=== PATIENT | female | born 1980 | race Caucasian/White ===

== ENCOUNTER 2022-06-26 09:38 | Outpatient (CLI) | payer OTHER | END 2022-06-26 09:39 | disposition home or self-care (01) | LOC: CSHULT 09:38 | PROVIDERS: ATTEND Family Medicine | DX: N76.0 Acute vaginitis (principal); N92.1 Excessive and frequent menstruation with irregular cycle; R10.84 Generalized abdominal pain; R93.2 Abnormal findings on diagnostic imaging of liver and biliary tract; R93.89 Abnormal findings on diagnostic imaging of other specified body structures | CPT/HCPCS: 76700; 76856 ==